=== PATIENT | female | born 1980 | race American Indian/Alaskan Native ===

== ENCOUNTER 2017-12-05 08:23 | Emergency (ER) | payer BC, MEDICAID ==
--- NOTE | 2017-12-05 09:06 | OBHP ---
Datetime: 12/05/2017 08:57 IP Adm Impression: , intrauterine Admit Comment, IP Provider: @ 25.5 wks GA hx of 2 previous cesearen section c/o vb this morn ing 7am, rpeorts when she went to the bathroom and noticed 2 large clots dark red, no cramping, no pa in, dneis any dysuira, urgency, frequnecy, consptaion, fever, chills, nasue mvoiting. pt reprots not recenlty sexually active, reprots first time of bleeding. pt reports pnc with Dr Noble and has been unpc mplicatd raymond any hx of labor or deliery OB: FT CxS uncmplicted, largest baby 7lbs [employer]: hx of fibroid (reprots small), dneis hx of abnormal pap, ovaria ncyst, STI PMH: dneis PSH: CxS x 2 FHX: non contriub MEDS: PNV NKDA A/P @ 25.5 wks with vaginal bleeding -f/u Labs: CBC, PT/INR, Fibrinogen, UA, Urine Cx, CMP -US: evulate placenta locatation -IVH -EFM Pelvic Type - PN: Adequate Extremities - PN: Normal Abdomen - PN: Normal Back - PN: Normal Breast - PN: Normal Lungs - PN: Normal Heart - PN: Normal Thyroid - PN: Normal Neurologic - PN: Normal HEENT - PN: Normal General - PN: Normal FHR - Baseline A Provider: 150 Comments, ACOG Physical Exam: Abd; Soft, NT, ND, No guarding, no rebound tenderness, no rigidity, no incisional tendnerss BACK: no CVA flank pain VE External genitiali: no gross abnormalites Vagina: Dark red mucous type small amout of discharge, no clots Cervix: appears closed Uterus; Non tender, no incisonal abodminal tendness Anus/Perineum: grossly normal Gestation - Est Wks by US: 25.5 EGA AdmitDate IP: 25.5 Vital Signs Provider: Reviewed IP Chief Complaint: Vaginal bleeding NICHD Variability Prov Fetus A: Moderate 6-25bpm NICHD Decel Fetus A IP Provider: None Genitourinary Exam: Normal DTRs - PN: Normal
[2017-12-05 09:32] LABS: BASO # 0.1 K/uL (0.0-0.2); BASO % 0.6 % (0.0-2.0); EOS # 0.2 K/uL (0.0-0.7); EOS % 1.3 % (0.0-4.0); HEMOGLOBIN 10.4 g/dL (11.0-16.0); LYMPH # 1.7 K/uL (1.0-4.3); LYMPH % 14.4 % (20.0-40.0); MEAN CORPUSCULAR HEMOGLOBIN 27.4 pg (27.0-31.0); MEAN PLATELET VOLUME 7.6 fL (7.2-11.7); MONO # 0.8 K/uL (0.0-0.8); MONO % 7.4 % (0.0-10.0); NEUT # 8.8 K/uL (1.8-7.0); NEUT % 76.3 % (50.0-75.0); RBC 3.8 Mil/uL (3.80-5.20); RED CELL DISTRIBUTION WIDTH 14.6 % (11.5-14.5); WHITE BLOOD COUNT 11.5 K/uL (4.8-10.8)
[2017-12-05 09:42] LABS: ALB/GLOB RATIO 0.9 (1.0-2.1); ALBUMIN 3.4 g/dL (3.5-5.0); AST/SGOT 17 U/L (14-36); BLOOD UREA NITROGEN 6 mg/dL (7-17); GFR AFRICAN-AMERICAN > 60; GFR NON-AFRICAN AMERICAN > 60
[2017-12-05 09:44] LABS: ALT/SGPT < 6 U/L (9-52)
[2017-12-05 09:56] LABS: PROTHROMBIN TIME 11.6 SECONDS (9.7-12.2)
[2017-12-05 10:33] LABS: SQUAMOUS EPITHIAL 6 /hpf (0-5); URINE BILIRUBIN NEGATIVE (NEGATIVE); URINE BLOOD 2+ (NEGATIVE); URINE CLARITY Hazy (Clear); URINE COLOR Yellow (YELLOW); URINE GLUCOSE (UA) NORMAL (Normal); URINE LEUKOCYTE ESTERASE NEG Leu/uL (Negative); URINE PROTEIN NEGATIVE (NEGATIVE); URINE UROBILINOGEN NORMAL mg/dL (0.2-1.0)
--- NOTE | 2017-12-05 11:02 | US ---
PROCEDURE: OB Pelvic Ultrasound HISTORY: 26 weeks gestation, vaginal bleeding LMP: 06/08/2017 COMPARISON: None available. FINDINGS: UTERUS: Gestational sac: Single live intrauterine fetus in breech presentation. Heart rate: 145 bpm. BPD: 6.48 cm corresponding to 26 weeks and 1 day of gestational age. HC: 24.2 cm corresponding to 26 weeks and 2 days of gestational age. AC: 21.4 cm corresponding to 25 weeks and 6 days of gestational age. FL: 4.77 cm corresponding to 26 weeks and 0 days of gestational age. age (Ultrasound estimated): 26 weeks and 1 day Carol-gestational hemorrhage: None. Date of delivery (Ultrasound estimated) : 03/12/2018 Placenta is posterior and there is evidence of placenta previa. CERVIX: Cervix a short and measures 1.9 cm. Placenta is low-lying and covers the internal os. RIGHT OVARY: Not visualized. LEFT OVARY: Not visualized. FREE FLUID: None. OTHER FINDINGS: None. IMPRESSION: Limited OB ultrasound performed in the emergency room. Single live intrauterine fetus in breech presentation with mean gestational age of 26 weeks and 1 day. Short cervix with evidence of mild funneling. Placenta is posterior, low-lying and covers the internal os. Dedicated 3rd trimester ultrasound scan is recommend date to reassess the placental position.
[2017-12-05] MEDS ORDERED: Betamethasone Soluspan 30 mg/5mL Inj Susp IM STA (11:13)
[2017-12-05 16:48] VITALS: BP 144/74; PULSE 106; RESP 18; TEMP 97.7; O2SAT 100
--- NOTE | 2017-12-05 16:56 | OBDCSUM ---
Datetime: 12/05/2017 16:55 Discharge Time: 12/05/2017 16:55 Discharge Comment, Provider: Delayed entry: pt seen adn evaluted earlier Transferred to [facility] as per PMD via ambualnace 25+ wks 2 preivus CxS wtih VB x 1, US: placenta pre via with short cervix adn funneling <2.5cm Discharge Diagnosis Prov Other: transferred to [facility]
== END 2017-12-05 12:35 | disposition short-term general hospital (02) ==
LOC: C.EROB 08:23
DX: O20.9 Hemorrhage in early pregnancy, unspecified (principal); Z3A.25 25 weeks gestation of pregnancy
CPT/HCPCS: 76815; 80053; 81001; 85025; 85384; 85610; 86850; 86900; 87086; 96365; 96372; 99283; J0702; J3475